=== PATIENT | female | born 1940 | race Caucasian/White ===

== ENCOUNTER 2019-03-06 12:18 | Emergency (ER) | payer OTHER ==
[~2019-03-06] VITALS: Ht 160 cm; Wt 74.9 kg
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
[2019-03-06 12:51] LABS: BASOPHILS # (AUTO) 0.1 /CMM (0.0-0.2); BASOPHILS % (AUTO) 0.4 % (0.0-2.0); EOSINOPHILS % (AUTO) 2.6 % (0.0-6.0); HEMATOCRIT 39 % (33-45); HEMOGLOBIN 12.8 g/dL (11.5-14.8); LYMPHOCYTES # (AUTO) 1.5 /CMM (0.8-4.8); LYMPHOCYTES % (AUTO) 12.6 % (20.0-44.0); MEAN CORPUSCULAR HGB CONC 33 g/dl (31.0-36.0); MEAN CORPUSCULAR VOLUME 90 fL (82-100); MONOCYTES # (AUTO) 0.5 /CMM (0.1-1.30); MONOCYTES % (AUTO) 4.4 % (2.0-12.0); NEUTROPHILS # (AUTO) 9.4 /CMM (1.8-8.9); PLATELET COUNT (AUTO) 220 /CMM (150-450); RED BLOOD CELL COUNT(AUTO) 4.33 MIL/uL (4.0-5.2); WHITE BLOOD COUNT (AUTO) 11.8 K/uL (4.3-11.0)
[2019-03-06] MEDS ORDERED: MORPHINE SULFATE INJ 4 MG/ML DISP.SYRIN ONE (12:53)
[2019-03-06] MEDS ORDERED: ONDANSETRON HCL/PF 4 MG/2 ML VIAL ONE (12:53)
[2019-03-06] MEDS ORDERED: IV NS 0.9% 250 ML IV ONE (12:58)
[2019-03-06] MEDS ORDERED: CT SWABBABLE VALVE TRANS SET 1 EA INFUS.SET MC ONE (12:58)
[2019-03-06] MEDS ORDERED: IOHEXOL-300 100 ML VIAL IV ONE (12:58)
[2019-03-06] MEDS ORDERED: ONDANSETRON HCL/PF - ER 4 MG/2 ML VIAL IV ONE (13:00)
[2019-03-06] MEDS ORDERED: TDAP [DIPH/PERTUSSIS/TET] 0.5 ML VIAL IM ONE ×2 (13:00→13:18)
[2019-03-06] MEDS ORDERED: MORPHINE SULFATE INJ 2 MG/ML DISP.SYRIN IM ONE (13:00)
[2019-03-06] MEDS ORDERED: IV NS 0.9% 1,000 ML BAG IV ONE ×2 (13:00→14:30)
[2019-03-06 13:06] LABS: CALCIUM, SERUM 8.9 mg/dL (8.5-10.1); CREATININE 0.7 mg/dL (0.6-1.3); POTASSIUM 4.1 mmol/L (3.5-5.1)
[2019-03-06 13:10] LABS: ALBUMIN 3.9 g/dL (3.4-5.0); BILIRUBIN,DIRECT 0.1 mg/dL (0.0-0.2); BILIRUBIN,TOTAL 0.3 mg/dL (0.2-1.0)
[2019-03-06] MEDS ORDERED: HYDROMORPHONE 1 MG/1 ML DISP.SYRIN ONE (14:16)
[2019-03-06] MEDS ORDERED: CEFAZOLIN 1 GM in IV D5W 50 ML IV ONE (14:30)
[2019-03-06] MEDS ORDERED: HYDROMORPHONE INJ 2 MG/ML DISP.SYRIN IV ONE (14:30)
[2019-03-06] MEDS ORDERED: LEVOFLOXACIN 750 MG /D5W 150ML 150 ML IV ONE ×2 (14:30→14:46)
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
--- NOTE | 2019-03-06 14:38 | NUR ---
CALLED [facility] SPOKE WITH IMELDA REGARDING TX. FAXED FACE SHEET AND IMAGING @ .
--- NOTE | 2019-03-06 14:50 | NUR ---
IMELDA FROM [facility] CALLED BACK STATING SHE HAS NO AVAILABLE BEDS AND CANT ACCEPT THE PATIENT.
--- NOTE | 2019-03-06 15:16 | NUR ---
VISHNU FROM [facility] CALLED WITH TX UPDATE. PATIENT WILL BE TX TO [facility] ER ACCEPTED BY DR BROOKS. NUMBER TO CALL REPORT IS [facility]#[phone]
--- NOTE | 2019-03-06 15:21 | NUR ---
CALLED [facility] FOR AN ALS TX. ETA OF [phone] WAS GIVEN. TRIP# [id number]
[2019-03-06] MEDS ORDERED: LIDOCAINE MPF 1%-EPI 1:200,000 30 ML VIAL IJ ONE (15:28)
[2019-03-06] MEDS ORDERED: LIDOCAINE 2%-EPI 1:100,000 30 ML VIAL TP ONE (15:30)
--- NOTE | 2019-03-06 15:57 | NUR ---
REPORT GIVEN TO CHRISTIAN LOPEZ AT [facility]
[2019-03-06 16:00] VITALS: BP 145/71
[2019-03-06 16:09] LABS: APPEARANCE,URINE SL CLOUDY (CLEAR); BILIRUBIN,URINE NEGATIVE (NEGATIVE); BLOOD, URINE TRACE-INTA Ery/uL (NEGATIVE); COLOR,URINE YELLOW (YELLOW); KETONES,URINE NEGATIVE (NEGATIVE); LEUKOCYTE ESTERASE ,URINE NEGATIVE (NEGATIVE); NITRITE, URINE NEGATIVE (NEGATIVE); PROTEIN,URINE NEGATIVE (NEGATIVE); UGLUCOSE NEGATIVE (NEGATIVE); UROBILINOGEN,URINE 0.2 EU/dL (0.2)
[2019-03-06 16:28] LABS: BACTERIA,URINE None seen /HPF (None Seen); RBC,URINE 0-2 /HPF (0-2); SQUAMOUS EPITHELIAL CELL,UR Few /HPF (None Seen); WBC,URINE 0-2 /HPF (0-3)
[2019-03-06 16:29] LABS: MUCUS,URINE Many /LPF (None Seen); URINE AMORPHOUS URATE Few /HPF (None Seen)
--- NOTE | 2019-03-06 17:12 | NUR ---
PT TRANSPORTED VIA PRIVATE AMBULANCE--[facility] TO [facility] ER, PT LEFT IN STABLE CONDITION, NAD NOTED, REPORT GIVEN TO AMBULANCE STAFF. ALL PAPERWORK GIVEN
== END 2019-03-06 17:16 | disposition short-term general hospital (02) ==
LOC: ER 12:20
DX: S22.080A Wedge compression fracture of T11-T12 vertebra, initial encounter for closed fracture (principal); S92.001A Unspecified fracture of right calcaneus, initial encounter for closed fracture; S32.018A Other fracture of first lumbar vertebra, initial encounter for closed fracture; S32.028A Other fracture of second lumbar vertebra, initial encounter for closed fracture; S22.21XA Fracture of manubrium, initial encounter for closed fracture; S22.31XA Fracture of one rib, right side, initial encounter for closed fracture; S81.011A Laceration without foreign body, right knee, initial encounter; S81.811A Laceration without foreign body, right lower leg, initial encounter; S20.211A Contusion of right front wall of thorax, initial encounter; S30.1XXA Contusion of abdominal wall, initial encounter; Z96.651 Presence of right artificial knee joint; Z85.3 Personal history of malignant neoplasm of breast; Z85.118 Personal history of other malignant neoplasm of bronchus and lung; Z85.850 Personal history of malignant neoplasm of thyroid; V43.52XA Car driver injured in collision with other type car in traffic accident, initial encounter; Y93.89 Activity, other specified; Y92.413 State road as the place of occurrence of the external cause; Y99.8 Other external cause status
CPT/HCPCS: 12034; 29515; 36415; 70450; 71045; 71260; 72125; 73560; 73590; 73600; 73700; 74177; 80048; 80076; 81001; 85025; 85730; 86850; 87086; 90471; 90715; 93005; 96365; 96375; 99285; A6403; J0690; J1170; J1956; J2270; J2405 ×2; J3490; J7030; J7050; J7060; Q9967; 81000-TC